=== PATIENT | female | born 1990 | race Caucasian/White ===

== ENCOUNTER 2023-01-20 14:28 | Emergency (ER) | payer SELFPAY ==
[~2023-01-20] VITALS: Ht 157.5 cm; Wt 70.5 kg
[2023-01-20 14:33] VITALS: O2SAT 96
[2023-01-20] MEDS ORDERED: KETOROLAC 15MG/ML VIAL IM ONE (16:45)
[2023-01-20] MEDS ORDERED: DOXYCYCLINE HYCLATE 100MG CAPSULE PO ONE (16:45)
[2023-01-20] MEDS ORDERED: TETANUS, DIPHTHERIA, PERTUSSIS VAC/PF 0.5ML (>10YR OLD) IM ONE ×2 (16:45→20:00)
[2023-01-20] MEDS ORDERED: LIDOCAINE HCL 1% 20ML VIAL (Pyxis) INJ INFIL ONE (16:45)
[2023-01-20 20:20] VITALS: TEMP 98.3
[2023-01-20] MEDS ORDERED: DOXY100C5 MT (20:22)
[2023-01-20] MEDS ORDERED: BO1 TP (20:22)
[2023-01-20] MEDS: LIDOCAINE HCL 1% 10 MG/ML 10ML VIAL IJ NR ×2 (20:22→20:24)
[2023-01-20] MEDS ORDERED: NAPR-681 MT (20:22)
[2023-01-20] MEDS: KETOROLAC 15MG/ML VIAL IM NR ×2 (20:23→20:24)
[2023-01-20] MEDS: DOXYCYCLINE HYCLATE 100MG CAPSULE PO NR ×2 (20:23→20:24)
[2023-01-20 20:24] VITALS: BP 121/73; PULSE 78; RESP 18
== END 2023-01-20 20:40 | disposition home or self-care (01) ==
LOC: ER 14:28
DX: S91.311A Laceration without foreign body, right foot, initial encounter (principal); J45.909 Unspecified asthma, uncomplicated; R00.0 Tachycardia, unspecified; Z88.0 Allergy status to penicillin; W54.0XXA Bitten by dog, initial encounter; Y93.89 Activity, other specified; Y92.89 Other specified places as the place of occurrence of the external cause; Y99.8 Other external cause status; Z98.890 Other specified postprocedural states
CPT/HCPCS: 81025; 73630; 90715; 12001; 90471; 99283; J1885; J3490; Z7610